=== PATIENT | male | born 1940 | race Caucasian/White ===

== ENCOUNTER → 2016-10-22 | Outpatient (CLI) | payer MEDICARE, OTHER ==
--- NOTE | 2016-10-22 23:01 | CT ---
EXAMINATION TYPE: CT abdomen pelvis wo con DATE OF EXAM: 10/22/2016 2:53 PM COMPARISON: NONE INDICATION: urination changes. Patient denies pain DLP: 618.3 mGycm, Automated exposure control for dose reduction was used. CONTRAST: 0 mL of Omnipaque 300. Study performed without Oral Contrast TECHNIQUE: Axial images were obtained from above the diaphragm to the pubic rami in the axial plane a t 5 mm thick sections. Reconstructed images are reviewed on the computer in the coronal plane. FINDINGS: Limited CT sections are obtained the lung bases. There is some streak opacity in the right posterior lung base. Correlate for streak atelectasis.. Coronary artery calcifications present. CT ABDOMEN: Liver: Normal Spleen: Normal Pancreas: Normal Adrenal glands: The adrenal glands are normal. Gallbladder: Normal Kidneys: No masses are evident. No hydronephrosis is present. There may be a 1.8 cm cyst within the anterior right kidney. This measures 10 Hounsfield units. 6 cyst posterior right mid kidney 0.4 cm. Inferior pole left renal cyst measuring 1.7 cm and 4 Hounsf ield units. An inferior pole right renal cyst measures 2.8 cm and 10 Hounsfield units. Aorta: Vascular calcification is within the aorta. Inferior vena cava: Normal. CT PELVIS: Loops of bowel within the abdomen and pelvis are normal. Diverticular changes are present through the descending colon and sigmoid colon. No acute diverticulitis is evident. Catheter is present with in the pelvis likely is a peritoneal dialysis catheter. No significant fluid is present within the pe lvis. Small amount of free fluid may be present. Appendix: Not identified Urinary bladder: Normal. Genitourinary structures: Prostate is not clearly identified. Correlate with surgical history. Osseous structures: No suspicious lytic or sclerotic lesions. IMPRESSIONS: 1. Renal cyst. 2. Diverticulosis without acute diverticulitis. 3. Streak atelectasis right lung base
== END | disposition home or self-care (01) ==
LOC: RADCTMAIN 14:30
PROVIDERS: ATTEND Internal Medicine
DX: N28.1 Cyst of kidney, acquired (principal); K57.30 Diverticulosis of large intestine without perforation or abscess without bleeding
CPT/HCPCS: 74176

== ENCOUNTER → 2018-01-06 | Day surgery (SDC) | payer MEDICARE, OTHER ==
[2018-01-04 11:40] VITALS: BMI 27.0
[~2018-01-06] MED LIST: INSULIN ASPART 100 UNIT/ML 1 ML 10 ML VIAL SQ ONE; LACTATED RINGERS 1,000 ML IV SCH; LIDOCAINE 1% 20 ML VIAL (10MG/ML) FOR IV START INTRADERMA ONE; ONDANSETRON 4 MG/2 ML VIAL IVP ONE; PROPOFOL 10 MG/ML 20 ML VIAL IV ONE; SODIUM CHLORIDE 0.9% 1,000 ML IV ONE; ePHEDrine SULFATE/0.9% NACL/PF 50 MG/5 ML SYRINGE IV ONE
[2018-01-06 08:17] VITALS: TEMP 98.1
[2018-01-06 08:20] LABS: Glucose,Whole Blood 274 mg/dL (75-99)
[2018-01-06 09:21] LABS: Glucose,Whole Blood 251 mg/dL (75-99)
[2018-01-06 10:33] VITALS: BP 113/73; PULSE 55; RESP 20
--- NOTE | 2018-01-06 11:13 | P.PCN ---
Date of Procedure: 01/06/18 Procedure(s) Performed: Procedure: 1. Esophagogastroduodenoscopy and biopsy. 2. Total colonoscopy. Preoperative diagnosis: Iron deficiency anemia. Postoperative diagnosis: 1. Hiatal hernia with low-grade distal esophagitis. 2. Mild antral gastritis and duodenitis with no ulcers or gastric outlet obstruction. 3. Biopsies obtained from the duodenum, antrum and esophagus. 4. Left-sided diverticulosis of the colon with no evidence of acute diverticulitis or strictures. 5. Cecal polyp snared but no large polyps or cancer. 6. No angiodysplasia or other potential sources of bleeding or any evidence of bleeding at the time of this exam. Preparation: HalfLytely prep. Sedation: Was provided by anesthesia. Brief clinical history: The patient is a 77-year-old male who is scheduled for this evaluation for investigating iron deficiency anemia. The patient has no overt bleeding. He has history of end-stage renal disease on peritoneal dialysis. He had a prior colonoscopy years back but no upper endoscopy that he recalls. He has no abdominal complaints, change in bowel habits or any upper GI complaints. Procedure: With the patient on his left lateral decubitus position and after informed consent and adequate sedation, I passed the Olympus-GIF 160 video upper endoscope through the cricopharyngeus down the esophagus. There was a small sliding hiatal hernia and some distal erythema and superficial short erosion or 2 terminating at the level of the GE junction. The endoscope was then passed into the stomach which was insufflated with air and inspected in detail including the retroflex view in the cardia. There was some mottling and erythema in the antrum but no ulcers or erosions. Pyloric channel, duodenal bulb, post bulbar area and descending duodenum showed minimal erythema but no ulcers, erosions or bleeding. Because of his anemia, I obtained biopsies from the duodenum in addition to biopsies from the antrum and esophagus then the endoscope was withdrawn and I proceeded to do colonoscopy. Perianal area did not show any fissures or fistulas. There were no masses felt on digital rectal examination. The Olympus CFQ 160L video colonoscope was then inserted in the rectum in the usual fashion and advanced to the cecum. There was multiple diverticular orifices noted in the sigmoid and left side with no evidence of acute diverticulitis or strictures. There was a 1.5 cm polyp in the cecum which was snared and retrieved by suction but there were no large polyps or cancer. The mucosa appeared healthy. There was no angiodysplasia or other potential sources of bleeding. I retroflexed the endoscope in the rectum before the endoscope was withdrawn. The patient tolerated the procedure well. Plan: The patient was reassured. Will consider capsule endoscopy to complete his workup. I would keep you updated on his progress.
== END ==
LOC: ORWHC2ENDO 07:41
DX: K44.9 Diaphragmatic hernia without obstruction or gangrene (principal); K29.50 Unspecified chronic gastritis without bleeding; K20.9 Esophagitis, unspecified; D12.0 Benign neoplasm of cecum; K29.80 Duodenitis without bleeding; K57.30 Diverticulosis of large intestine without perforation or abscess without bleeding; D50.9 Iron deficiency anemia, unspecified; I25.118 Atherosclerotic heart disease of native coronary artery with other forms of angina pectoris; E11.22 Type 2 diabetes mellitus with diabetic chronic kidney disease; I12.0 Hypertensive chronic kidney disease with stage 5 chronic kidney disease or end stage renal disease; N18.6 End stage renal disease; Z99.2 Dependence on renal dialysis; E78.5 Hyperlipidemia, unspecified; Z85.46 Personal history of malignant neoplasm of prostate; Z79.82 Long term (current) use of aspirin; Z79.4 Long term (current) use of insulin; Z79.899 Other long term (current) drug therapy; Z91.040 Latex allergy status; Z91.09 Other allergy status, other than to drugs and biological substances
CPT/HCPCS: 88305; 45385; 43239; J2405; J2704

== ENCOUNTER 2018-07-24 09:15 | Inpatient (IN) | payer MEDICARE, OTHER ==
[2018-07-24 20:01] VITALS: BMI 30.8
[2018-07-24] MEDS ORDERED: ALPRAZolam 0.25 MG TAB PO PRN (20:50)
[2018-07-24] MEDS ORDERED: LACTULOSE 20 GM/30 ML CUP PO PRN (20:50)
[2018-07-24] MEDS ORDERED: VANCOMYCIN IV PER PHARMACY 1 EACH MISC MISCELLANE PRN (20:53)
[2018-07-24] MEDS ORDERED: VANCOMYCIN 1,250 MG in SODIUM CHLORIDE 0.9% 250 ML IVPB ONE (22:00)
[2018-07-24] MEDS: CALCIUM ACETATE 667 MG CAP PO SCH (22:01)
[2018-07-24] MEDS: INSULIN ASPART 100 UNIT/ML 1 ML 10 ML VIAL SQ SCH (22:01)
[2018-07-24] MEDS: SERTRALINE 25 MG TAB PO SCH (22:01)
[2018-07-24] MEDS: INSULIN DETEMIR 100 UNIT/ML 10 ML VIAL SQ SCH (22:02)
[2018-07-24] MEDS: DIALYSIS (PERIT 1.5%) 2,000 ML 30 G/2,000 ML BAG INTRAPERIT SCH (23:48)
[2018-07-25] MEDS: DIALYSIS (PERIT 1.5%) 2,000 ML 30 G/2,000 ML BAG INTRAPERIT SCH (05:48)
[2018-07-25 07:13] LABS: Glucose,Whole Blood 80 mg/dL (75-99)
[2018-07-25] MEDS: INSULIN ASPART 100 UNIT/ML 1 ML 10 ML VIAL SQ SCH ×4 (07:29→20:49)
[2018-07-25] MEDS: LISINOPRIL 20 MG TAB PO SCH (08:21)
[2018-07-25] MEDS: FUROSEMIDE 40 MG TAB PO SCH (08:21)
[2018-07-25] MEDS: GENTAMICIN 0.1% CREAM 15 GM TUBE TOPICAL SCH (08:21)
[2018-07-25] MEDS: FAMOTIDINE 20 MG TAB PO SCH (08:21)
[2018-07-25] MEDS: CALCIUM ACETATE 667 MG CAP PO SCH ×4 (08:21→20:47)
[2018-07-25] MEDS: ASPIRIN 81 MG PO SCH (08:21)
[2018-07-25 08:45] LABS: Glucose,Whole Blood 223 mg/dL (75-99)
--- NOTE | 2018-07-25 08:55 | P.PN ---
Subjective Patient is seen in follow-up for end-stage renal disease. He is maintained on peritoneal dialysis. Patient was at [facility] and was transferred here last night. He is currently being treated for peritonitis. His initial fluid culture was positive for staph she's. He was receiving intraperitoneal vancomycin - last dose was on July 23. Repeat cultures have been negative. He is currently on IV vancomycin. He is tolerating the peritoneal dialysis exchanges well. present at bedside. Vital signs are stable. General: The patient appeared well nourished and normally developed. HEENT: Head exam is unremarkable. Neck is without jugular venous distension. LUNGS: Lungs are clear to auscultation and percussion. Breath sounds decreased. HEART: Rate and Rhythm are regular. First and second heart sounds normal. No murmurs, rubs or gallops. ABDOMEN: Abdominal exam reveals normal bowel sounds. Non-tender and non- distended. No evidence of peritonitis. EXTREMITITES: 1+ edema. Objective - Vital Signs Vital signs: Vital Signs Temp 98.3 F 07/25/18 06:33 Pulse 72 07/25/18 06:33 Resp 16 07/25/18 06:33 BP 111/67 07/25/18 06:33 Pulse Ox 96 07/25/18 06:33 Intake & Output 07/24/18 07/25/18 07/25/18 18:59 06:59 18:59 Weight 84.1 kg Other: # Voids 2 # Bowel Movements 1 - Labs Labs: Abnormal Lab Results - Last 24 Hours (Table) 07/24/18 Range/Units 20:53 POC Glucose (mg/dL) 223 H (75-99) mg/dL Assessment and Plan Plan: Assessment: 1. End-stage renal disease maintained on peritoneal dialysis. 2. Peritonitis with initial fluid culture positive for staph species. Patient has received intraperitoneal vancomycin as well as gentamicin at [facility]. Currently on IV vancomycin. Repeat cultures were negative. 3. Hypertension with chronic kidney disease. Controlled. 4. Insulin-dependent diabetes mellitus. 5. 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 6. Lower extremity edema. Plan: I will change the PD exchanges 2 L every 6 hours with 2.5% solution. Maintain IV vancomycin. Repeat dialysate cell count, culture and Gram stain today. Hold lisinopril if systolic blood pressure less than 120.
[2018-07-25 09:20] LABS: Anisocytosis Slight; Basophils % (A) 0 %; Eosinophils # (A) 0.2 k/uL (0-0.7); Eosinophils % (A) 3 %; HCT 33.8 % (39.0-53.0); HGB 10.6 gm/dL (13.0-17.5); Hypochromasia Slight; Lymphocytes # (A) 1.1 k/uL (1.0-4.8); Lymphocytes % (A) 12 %; MCH 31.6 pg (25.0-35.0); MCHC 31.4 g/dL (31.0-37.0); MCV 100.6 fL (80.0-100.0); Macrocytosis Moderate; Mean Platelet Volume 6.9; Monocytes # (A) 0.5 k/uL (0-1.0); Monocytes % (A) 5 %; Neutrophils # (A) 6.9 k/uL (1.3-7.7); Neutrophils % (A) 77 %; Platelet Count 338 k/uL (150-450); RBC 3.36 m/uL (4.30-5.90); WBC 8.9 k/uL (3.8-10.6)
[2018-07-25 09:49] LABS: Albumin 3.1 g/dL (3.5-5.0); Calcium 9.2 mg/dL (8.4-10.2); Potassium 3.8 mmol/L (3.5-5.1); Total Bilirubin 0.5 mg/dL (0.2-1.3); Total Protein 5.9 g/dL (6.3-8.2)
[2018-07-25] MEDS: DIALYSIS (PERIT 2.5%) 2,000 ML 50 G/2,000 ML BAG INTRAPERIT SCH ×3 (11:46→23:31)
[2018-07-25 12:26] LABS: Glucose,Whole Blood 171 mg/dL (75-99)
[2018-07-25] MEDS ORDERED: VANCOMYCIN 1,250 MG in SODIUM CHLORIDE 0.9% 250 ML IVPB ONE (16:00)
[2018-07-25 16:42] LABS: Glucose,Whole Blood 228 mg/dL (75-99)
[2018-07-25 18:16] LABS: Hemoglobin A1C 8.8 % (4.0-6.0)
[2018-07-25 19:06] LABS: Appearance,BF Clear; Color,BF Colorless; Nucleated Cells, Body Fluid 1 /uL; RBC, Body Fluid 4 /uL
[2018-07-25] MEDS: SERTRALINE 25 MG TAB PO SCH (20:47)
[2018-07-25 20:50] LABS: Glucose,Whole Blood 184 mg/dL (75-99)
[2018-07-25] MEDS: INSULIN DETEMIR 100 UNIT/ML 10 ML VIAL SQ SCH (21:03)
--- NOTE | 2018-07-26 01:40 | P.HPIM ---
History of Present Illness H&P Date: 07/25/18 Chief Complaint: Abdominal wall PD site infection History of present complaint: This is a very pleasant [address] Sarthak Locke. Chronic stable medical conditions include diabetes, end-stage kidney disease on peritoneal dialysis, hypertension, hyperlipidemia, osteoarthritis, anxiety. Patient recently took a fall and was brought to the ER. It was then doubly patient lives a cervical spine fracture. Patient was transferred down to the [facility]. Patient was found not to have a fracture there. Patient's found to have infection of the peritoneal catheter dialysis site. Also peritonitis with Staphylococcus. And he was transferred here. Getting antibiotics for the same. The patient is able to walk. Able to tolerate her diet. Having bowel movements. Patient of recent is had couple of episodes he gets dizzy then he passes out. No chest pain or palpitation. No fever no chills. Review of systems: GEN.: None EYES: None HEENT: None NECK: None RESPIRATORY: None CARDIOVASCULAR: None GASTROINTESTINAL: None GENITOURINARY: None MUSCULOSKELETAL: Some pain which I LYMPHATICS: None HEMATOLOGICAL: None PSYCHIATRY: None NEUROLOGICAL: None Dermatological bruising on the right forehead Past medical history: Diabetes, end-stage kidney disease on peritoneal Dialysis, hypertension, hyperlipidemia, osteoarthritis, prostate cancer, anxiety Social history: Smokes 3 and a pack a day for about 25 years stopped in 1985. . 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 EYES: Pupils equal. Conjunctiva normal. HEENT: External appearance of nose and ears normal, oral cavity grossly normal, some bruising on the right side of the forehead. NECK: JVD not raised; masses not palpable. HEART: First and second heart sounds are normal; no edema. LUNGS: Respiratory rate normal; decreased breaths a. ABDOMEN: Soft, nontender, liver spleen not palpable, no masses palpable, PD catheter present Some redness of the skin around that. LYMPHATICS: No lymph nodes palpable in the axilla and neck. PSYCH: Alert and oriented x3; mood and affect normal. NEUROLOGICAL: Cranial nerves grossly intact; no facial asymmetry, power and sensation grossly intact. Assessment: -Acute cellulitis around the PD catheter site. -Secondary peritonitis with cultures that were positive for staph. Patient did receive intraperitoneal vancomycin and gentamicin at [facility] -Diabetes mellitus type 2 -End-stage kidney disease on peritoneal dialysis -Essential hypertension -Hyperlipidemia -Primary osteoarthritis Plan: Infectious disease and nephrology was consulted. Home medications are resumed. Peripheral dialysis to continue. Antibiotics per ID. Care was discussed with the patient. Patient's appetite is rather good. floor worker well service is involved. Care was discussed the patient. Past Medical History Past Medical History: Cancer, Chest Pain / Angina, Diabetes Mellitus, Dialysis, Hearing Disorder / Deafness, Hyperlipidemia, Hypertension, Osteoarthritis (OA), Prostate Disorder, Renal Disease Additional Past Medical History / Comment(s): PROSTATE CANCER , heart murmer, anemia, "boarderline gout", no current rx for cholesterol, peritoneal dialysis- daily, problems with balance-cause unknown History of Any Multi-Drug Resistant Organisms: None Reported Past Surgical History: Heart Catheterization, Hernia Repair, Prostate Surgery, Tonsillectomy Additional Past Surgical History / Comment(s): LEFT INGUINAL HERNIA REPAIR X2, peritoneal dialysis catheter Past Anesthesia/Blood Transfusion Reactions: No Reported Reaction Past Psychological History: Anxiety Smoking Status: Former smoker Past Alcohol Use History: None Reported Additional Past Alcohol Use History / Comment(s): STARTED SMOKING AT AGE 21, QUIT 1986 SMOKED, 3 1/2 PPD Past Drug Use History: None Reported - Past Family History Father Family Medical History: Cancer Medications and Allergies Home Medications Medication Instructions Recorded Confirmed Type Aspirin 81 mg PO DAILY 06/02/16 07/24/18 History Calcium Acetate [Phoslo] 667 mg PO ACHS 06/02/16 07/24/18 History ALPRAZolam [Xanax] 0.25 mg PO BID PRN 01/04/18 07/24/18 History Calcitriol 0.5 mcg PO MO 01/04/18 07/24/18 History Ergocalciferol [Vitamin D2] 50,000 unit PO Q14D 01/04/18 07/24/18 History Furosemide [Lasix] 80 mg PO DAILY 01/04/18 07/24/18 History Insulin Glargine [Lantus] 35 unit SQ HS 01/04/18 07/24/18 History Lisinopril [Zestril] 20 mg PO DAILY 01/04/18 07/24/18 History Sertraline [Zoloft] 25 mg PO HS 01/04/18 07/24/18 History Calcium Carb-Mag Carb-Folic 1 tab PO TID 07/21/18 07/24/18 History [Magnebind 400 Rx] Famotidine 20 mg PO DAILY 07/21/18 07/24/18 History Lactulose 20 gm PO DAILY PRN 07/21/18 07/24/18 History Francheska Charli 1 tab PO DAILY 07/21/18 07/24/18 History Sevelamer [Renvela] 800 mg PO AC-TID 07/21/18 07/24/18 History Allergies Allergy/AdvReac Type Severity Reaction Status Date / Time adhesive tape Allergy Rash/Hives/ Verified 07/24/18 20:31 blisters/it xochitl latex Allergy Rash/Hives/ Verified 07/24/18 20:31 blisters sulfamethoxazole AdvReac Nausea & Verified 07/24/18 20:31 [From Bactrim] Vomiting trimethoprim [From Bactrim] AdvReac Nausea & Verified 07/24/18 20:31 Vomiting Physical Exam Vitals: Vital Signs Temp Pulse Pulse Resp BP BP Pulse Ox 07/25/18 15:21 16 07/25/18 14:00 98.2 F 54 L 16 183/98 93 L 07/25/18 11:27 68 16 98/58 98 07/25/18 08:00 72 16 07/25/18 06:33 98.3 F 72 16 111/67 96 07/24/18 23:48 98.0 F 70 16 112/70 98 07/24/18 23:25 98.3 F 73 16 111/68 97 07/24/18 19:53 96.2 F L 82 16 116/63 98 Intake and Output 07/25/18 07/25/18 07/25/18 06:59 14:59 22:59 Other: # Voids 2 3 # Bowel Movements 1 Results CBC & Chem 7: 07/25/18 08:24 07/25/18 08:24 Labs: Abnormal Lab Results - Last 24 Hours (Table) 07/24/18 07/25/18 07/25/18 Range/Units 20:53 08:24 08:24 RBC 3.36 L (4.30-5.90) m/uL Hgb 10.6 L (13.0-17.5) gm/dL Hct 33.8 L (39.0-53.0) % MCV 100.6 H (80.0-100.0) fL RDW 18.0 H (11.5-15.5) % Sodium 135 L (137-145) mmol/L Chloride 95 L (98-107) mmol/L BUN 74 H (9-20) mg/dL Creatinine 8.41 H* (0.66-1.25) mg/dL Glucose 136 H (74-99) mg/dL POC Glucose (mg/dL) 223 H (75-99) mg/dL Total Protein 5.9 L (6.3-8.2) g/dL Albumin 3.1 L (3.5-5.0) g/dL 07/25/18 07/25/18 Range/Units 12:24 16:40 RBC (4.30-5.90) m/uL Hgb (13.0-17.5) gm/dL Hct (39.0-53.0) % MCV (80.0-100.0) fL RDW (11.5-15.5) % Sodium (137-145) mmol/L Chloride (98-107) mmol/L BUN (9-20) mg/dL Creatinine (0.66-1.25) mg/dL Glucose (74-99) mg/dL POC Glucose (mg/dL) 171 H 228 H (75-99) mg/dL Total Protein (6.3-8.2) g/dL Albumin (3.5-5.0) g/dL Thrombosis Risk Factor Assmnt - Choose All That Apply Each Factor Represents 1 point: Obesity (BMI >25) Other Risk Factors: Yes Each Risk Factor Represents 3 Points: Age 75 years or older Other congenital or acquired thrombophilia - If yes, enter type in comment: No Thrombosis Risk Factor Assessment Total Risk Factor Score: 4 Thrombosis Risk Factor Assessment Level: Moderate Risk
[2018-07-26] MEDS: DIALYSIS (PERIT 2.5%) 2,000 ML 50 G/2,000 ML BAG INTRAPERIT SCH ×4 (05:49→20:16)
[2018-07-26 07:15] LABS: Glucose,Whole Blood 153 mg/dL (75-99)
[2018-07-26] MEDS: FUROSEMIDE 40 MG TAB PO SCH (07:35)
[2018-07-26] MEDS: ASPIRIN 81 MG PO SCH (07:35)
[2018-07-26] MEDS: FAMOTIDINE 20 MG TAB PO SCH (07:35)
[2018-07-26] MEDS: INSULIN ASPART 100 UNIT/ML 1 ML 10 ML VIAL SQ SCH ×4 (07:36→21:42)
[2018-07-26] MEDS: CALCIUM ACETATE 667 MG CAP PO SCH ×4 (07:36→20:36)
[2018-07-26] MEDS: GENTAMICIN 0.1% CREAM 15 GM TUBE TOPICAL SCH (07:36)
[2018-07-26] MEDS: LISINOPRIL 20 MG TAB PO SCH (07:36)
[2018-07-26 08:44] LABS: Anisocytosis Slight; Basophils # (A) 0.1 k/uL (0-0.2); Basophils % (A) 1 %; Eosinophils # (A) 0.3 k/uL (0-0.7); Eosinophils % (A) 3 %; Hypochromasia Slight; Lymphocytes # (A) 1.2 k/uL (1.0-4.8); Lymphocytes % (A) 14 %; MCH 32.5 pg (25.0-35.0); MCHC 32.4 g/dL (31.0-37.0); MCV 100.2 fL (80.0-100.0); Macrocytosis Slight; Mean Platelet Volume 6.9; Monocytes # (A) 0.4 k/uL (0-1.0); Monocytes % (A) 5 %; Neutrophils # (A) 6.6 k/uL (1.3-7.7); Neutrophils % (A) 75 %; Platelet Count 381 k/uL (150-450); RBC 3.39 m/uL (4.30-5.90); RDW 17.9 % (11.5-15.5); WBC 8.8 k/uL (3.8-10.6)
[2018-07-26 09:03] LABS: Calcium 9.5 mg/dL (8.4-10.2); Potassium 3.7 mmol/L (3.5-5.1)
--- NOTE | 2018-07-26 10:24 | P.PN ---
Subjective Patient is seen in follow-up for end-stage renal disease. He is maintained on peritoneal dialysis. Patient was at [facility] and was transferred here as he lives in the area. He is currently being treated for peritonitis. His initial fluid culture was positive for staph aureus. He was receiving intraperitoneal vancomycin - last dose was on July 23. Repeat cultures have been negative. He is currently on IV vancomycin. He is tolerating the peritoneal dialysis exchanges well. Complains of edema of the lower extremities. Vital signs are stable. General: The patient appeared well nourished and normally developed. HEENT: Head exam is unremarkable. Neck is without jugular venous distension. LUNGS: Lungs are clear to auscultation and percussion. Breath sounds decreased. HEART: Rate and Rhythm are regular. First and second heart sounds normal. No murmurs, rubs or gallops. ABDOMEN: Abdominal exam reveals normal bowel sounds. Non-tender and non- distended. No evidence of peritonitis. EXTREMITITES: 1+ edema. Objective - Vital Signs Vital signs: Vital Signs Temp 98.0 F 07/26/18 07:15 Pulse 77 07/26/18 07:15 Resp 18 07/26/18 07:15 BP 112/75 07/26/18 07:15 Pulse Ox 98 07/26/18 07:15 Intake & Output 07/25/18 07/26/18 07/26/18 18:59 06:59 18:59 Other: Voiding Method Toilet # Voids 1 1 # Bowel Movements 1 - Labs CBC & Chem 7: 07/26/18 08:14 07/26/18 08:14 Labs: Abnormal Lab Results - Last 24 Hours (Table) 07/25/18 07/25/18 07/25/18 Range/Units 08:24 12:24 16:40 RBC (4.30-5.90) m/uL Hgb (13.0-17.5) gm/dL Hct (39.0-53.0) % MCV (80.0-100.0) fL RDW (11.5-15.5) % BUN (9-20) mg/dL Creatinine (0.66-1.25) mg/dL Glucose (74-99) mg/dL POC Glucose (mg/dL) 171 H 228 H (75-99) mg/dL Hemoglobin A1c 8.8 H (4.0-6.0) % 07/25/18 07/26/18 07/26/18 Range/Units 20:43 07:13 08:14 RBC (4.30-5.90) m/uL Hgb (13.0-17.5) gm/dL Hct (39.0-53.0) % MCV (80.0-100.0) fL RDW (11.5-15.5) % BUN 76 H (9-20) mg/dL Creatinine 8.53 H* (0.66-1.25) mg/dL Glucose 155 H (74-99) mg/dL POC Glucose (mg/dL) 184 H 153 H (75-99) mg/dL Hemoglobin A1c (4.0-6.0) % 07/26/18 Range/Units 08:14 RBC 3.39 L (4.30-5.90) m/uL Hgb 11.0 L (13.0-17.5) gm/dL Hct 34.0 L (39.0-53.0) % MCV 100.2 H (80.0-100.0) fL RDW 17.9 H (11.5-15.5) % BUN (9-20) mg/dL Creatinine (0.66-1.25) mg/dL Glucose (74-99) mg/dL POC Glucose (mg/dL) (75-99) mg/dL Hemoglobin A1c (4.0-6.0) % Microbiology - Last 24 Hours (Table) 07/25/18 18:33 Gram Stain - Preliminary Peritoneal Fluid Body Fluid Culture - Preliminary Assessment and Plan Plan: Assessment: 1. End-stage renal disease maintained on peritoneal dialysis. 2. Peritonitis with initial fluid culture positive for staph species. Patient has received intraperitoneal vancomycin as well as gentamicin at [facility]. Currently on IV vancomycin. Repeat cultures have been negative. Cell count is 1. 3. Hypertension with chronic kidney disease. Controlled. 4. Insulin-dependent diabetes mellitus. 5. 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 6. Lower extremity edema. Plan: I will change the PD exchanges 2 L every 4 hours with 2.5% solution. Maintain IV vancomycin. Target level 15. Discontinue lisinopril. Maintain Lasix 80 mg daily. Add midodrine.
[2018-07-26] MEDS: MIDODRINE 5 MG TAB PO SCH ×2 (10:53→17:45)
[2018-07-26 12:17] LABS: Glucose,Whole Blood 231 mg/dL (75-99)
[2018-07-26 17:03] LABS: Glucose,Whole Blood 167 mg/dL (75-99)
[2018-07-26] MEDS: SERTRALINE 25 MG TAB PO SCH (20:36)
[2018-07-26 20:50] LABS: Glucose,Whole Blood 198 mg/dL (75-99)
[2018-07-26] MEDS: INSULIN DETEMIR 100 UNIT/ML 10 ML VIAL SQ SCH (21:42)
[2018-07-27] MEDS: DIALYSIS (PERIT 2.5%) 2,000 ML 50 G/2,000 ML BAG INTRAPERIT SCH ×7 (00:27→23:57)
--- NOTE | 2018-07-27 06:19 | CONS ---
CONSULTATION DATE OF SERVICE: 07/26/2018 REASON FOR CONSULTATION: Right leg wound. HISTORY OF PRESENT ILLNESS: The patient is a 78-year-old male with a past medical history significant for end-stage renal disease on peritoneal dialysis. The patient was recently seen at [facility] ER after apparently the patient did have a fall and a low blood sugar. The patient subsequently has been transferred to the [facility] concern for possible C1 cervical fracture. He has been evaluated at that facility and was ruled out for the same. He was diagnosed with peritoneal dialysis catheter peritonitis, apparently culture positive for Staph epi. Subsequently, the patient has been transferred to this facility for continued treatment which the patient is currently getting vancomycin IV. The patient did mention that his abdominal pain has improved and the patient did have peritoneal fluid sent for analysis, which was clear, colorless and only one cell. The patient also has a wound on his right leg. He did mention that he did have significant swelling in his leg that has led to formation of a blister that has opened up leading to this ulceration which the patient has for a couple of weeks now. The patient said he has been taking care of this by applying some dressing. The patient did have mild pain to the area more of a dull aching, 1 to 2 out of 10 and no radiation. There is some surrounding swelling but no redness or any foul- smelling drainage. The patient denies having any fever or chills at this point. REVIEW OF SYSTEMS: Positive points have been mentioned in HPI, the rest of the 14 systems has been negative. PAST MEDICAL HISTORY: End-stage renal disease on peritoneal dialysis, hypertension, hyperlipidemia, osteoarthritis, prostate cancer, anxiety. PAST SURGICAL HISTORY: Peritoneal dialysis catheter placement. SOCIAL HISTORY: The patient did have significant history of smoking, quit back in 1985. Denies any drinking or drug use. FAMILY HISTORY: No pertinent findings noticed. ALLERGIES: Allergies to SULFAMETHOXAZOLE and LATEX. MEDICATIONS: The patient is currently on Zoloft, vancomycin pharmacy to dose, midodrine, lactulose, Levemir, NovoLog, Lasix, Pepcid, PhosLo, aspirin, and Xanax. PHYSICAL EXAMINATION: On examination, blood pressure is 104/63 with a pulse of 84, temperature 97. He is 94% on room air. General description is elderly male up in the bed in no distress. No tachypnea or accessory muscle of respiration use. HEENT examination shows pallor no scleral icterus. Oral mucous membrane is dry. No pharyngeal erythema or thrush. NECK: Trachea central. No thyromegaly. LUNGS: Unlabored breathing, clear to auscultation anteriorly. No wheeze or crackle. HEART: S1, S2. Regular rate and rhythm. ABDOMEN: Soft, no tenderness. No guarding or rigidity. EXTREMITIES: With 1 to 2+ edema of feet. Right leg anterior leg did have a wound with slough tissue at the base. Some surrounding swelling but no redness or any foul- smelling drainage. NEUROLOGICAL: Patient is awake, alert, oriented x3. Mood and affect normal. LABS: Hemoglobin is 11, white count 8.8. BUN of 76, creatinine 8.53. Peritoneal fluid with clear, colorless, only 1 WBC with cultures currently pending. DIAGNOSTIC IMPRESSION AND PLAN: 1. Patient with right leg wound more likely swelling with blister formation. Currently the wound does have slough tissue at the base, but no evidence of any cellulitis. Will recommend local wound care. 2. The patient with peritoneal dialysis catheter-assisted peritonitis with culture positive for Staphylococcus epidermidis. PLAN: 1. Local wound care to the right leg wound with Medihoney followed by moist dressing then an Lul wrap on the right leg to keep the swelling down. Dressing should be changed daily. 2. Patient to continue vancomycin pharmacy to dose for his underlying peritonitis. However, we will try to obtain the culture report from the [facility]. 3. We will follow up on clinical condition and further adjust medication if needed. Thank you for this consultation. Will follow this patient along with you. MMODL / IJN: [id number] /
[2018-07-27] MEDS ORDERED: INSULIN DETEMIR 100 UNIT/ML 10 ML VIAL SQ SCH (06:20)
[2018-07-27 07:35] LABS: Glucose,Whole Blood 160 mg/dL (75-99)
[2018-07-27] MEDS: FUROSEMIDE 40 MG TAB PO SCH (08:26)
[2018-07-27] MEDS: CALCIUM ACETATE 667 MG CAP PO SCH ×4 (08:26→20:50)
[2018-07-27] MEDS: FAMOTIDINE 20 MG TAB PO SCH (08:26)
[2018-07-27] MEDS: MIDODRINE 5 MG TAB PO SCH ×2 (08:26→16:28)
[2018-07-27] MEDS: ASPIRIN 81 MG PO SCH (08:26)
[2018-07-27] MEDS: INSULIN ASPART 100 UNIT/ML 1 ML 10 ML VIAL SQ SCH ×4 (08:27→22:01)
[2018-07-27] MEDS: GENTAMICIN 0.1% CREAM 15 GM TUBE TOPICAL SCH (08:27)
--- NOTE | 2018-07-27 10:01 | P.PN ---
Subjective Patient is seen in follow-up for end-stage renal disease. He is maintained on peritoneal dialysis. Patient was at [facility] and was transferred here as he lives in the area. He is currently being treated for peritonitis. His initial fluid culture was positive for staph aureus. He was receiving intraperitoneal vancomycin - last dose was on July 23. Repeat cultures have been negative. He is currently on IV vancomycin. He is tolerating the peritoneal dialysis exchanges well. Lower extremity edema improving. Vital signs are stable. General: The patient appeared well nourished and normally developed. HEENT: Head exam is unremarkable. Neck is without jugular venous distension. LUNGS: Lungs are clear to auscultation and percussion. Breath sounds decreased. HEART: Rate and Rhythm are regular. First and second heart sounds normal. No murmurs, rubs or gallops. ABDOMEN: Abdominal exam reveals normal bowel sounds. Non-tender and non- distended. No evidence of peritonitis. EXTREMITITES: 1+ edema. Objective - Vital Signs Vital signs: Vital Signs Temp 97.9 F 07/27/18 05:40 Pulse 68 07/27/18 05:40 Resp 20 07/27/18 05:40 BP 109/68 07/27/18 05:40 Pulse Ox 98 07/27/18 05:40 Intake & Output 07/26/18 07/27/18 07/27/18 18:59 06:59 18:59 Intake Total 300 Balance 300 Weight 81.5 kg Intake: Oral 300 Other: Voiding Method Toilet # Voids 1 2 - Labs CBC & Chem 7: 07/26/18 08:14 07/26/18 08:14 Labs: Abnormal Lab Results - Last 24 Hours (Table) 07/26/18 07/26/18 07/26/18 Range/Units 12:14 17:01 20:48 POC Glucose (mg/dL) 231 H 167 H 198 H (75-99) mg/dL 07/27/18 Range/Units 07:11 POC Glucose (mg/dL) 160 H (75-99) mg/dL Microbiology - Last 24 Hours (Table) 07/25/18 18:33 Gram Stain - Preliminary Peritoneal Fluid Body Fluid Culture - Preliminary Assessment and Plan Plan: Assessment: 1. End-stage renal disease maintained on peritoneal dialysis. 2. Peritonitis with initial fluid culture positive for staph species. Patient has received intraperitoneal vancomycin as well as gentamicin at [facility]. Currently on IV vancomycin. Repeat cultures have been negative. Cell count is 1. 3. Hypertension with chronic kidney disease. Controlled. 4. Insulin-dependent diabetes mellitus. 5. 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 6. Lower extremity edema. Improving. 7. Lower extremity wound. Infectious disease following. Plan: Maintain current PD exchanges - 2 L every 4 hours with 2.5% solution. Maintain IV vancomycin. Target level 15. Discontinued lisinopril due to low blood pressure. Maintain Lasix 80 mg daily. Continue midodrine.
[2018-07-27 12:50] LABS: Glucose,Whole Blood 246 mg/dL (75-99)
--- NOTE | 2018-07-27 17:07 | PN ---
PROGRESS NOTE DATE OF SERVICE: 07/27/2018. REASON FOR FOLLOWUP: 1. Right leg wound. 2. Peritoneal dialysis catheter-associated peritonitis. INTERVAL HISTORY: The patient is currently afebrile. He is breathing comfortably. Patient's abdominal pain has improved. He did mention that the soreness around the dialysis catheter much improved. Denies any abdominal pain or any pain to the right leg area. PHYSICAL EXAMINATION: Blood pressure is 119/56, pulse of 73, temperature 97.3. He is 99% on room air. General description is an elderly male up in the bed in no distress. RESPIRATORY SYSTEM: Unlabored breathing with decreased breath sounds at the base. No wheeze. HEART: S1, S2. Regular rate and rhythm. ABDOMEN: LABS: No new labs have been obtained today. Peritoneal culture has been negative. DIAGNOSTIC IMPRESSION AND PLAN: 1. Patient with a right leg wound with no evidence of any cellulitis. Local wound care with Medihoney covered by Lul wrap to keep the swelling down, to be changed daily. Follow up in the wound care center next week. Continue with local care. 2. Patient with a peritoneal dialysis catheter-associated peritonitis, still waiting for the final on the culture done at [facility] with Staphylococcus epidermidis, for which he will continue the vancomycin, Pharmacy to dose, through the peritoneal dialysis catheter for another 3 . MMODL / IJN: [id number] /
[2018-07-27 17:38] LABS: Glucose,Whole Blood 123 mg/dL (75-99)
--- NOTE | 2018-07-27 18:28 | P.PN ---
Subjective Progress Note Date: 07/26/18 Interval history: This is a 78-year-old gentleman admitted with peritonitis in a patient with end-stage renal disease on peritoneal dialysis and multiple other medical issues. Peritoneal dialysis exchanges increased from every 6 hours to every 4 hours as per nephrology. Peritoneal drainage clear, colorless , with 1 nucleated cell. Peritoneal cultures pending. Peritoneal culture results from [facility] have been ordered and pending. Maintained on IV vancomycin as per infectious disease with pharmacy dosing. Good diet intake with no nausea or vomiting. Review Of Systems: Constitutional: Denied any fatigue denied any fever. Cardio vascular: denied any chest pain, palpitations Gastrointestinal denied any nausea vomiting, no abdominal pain Pulmonary: Denied any shortness of breath cough Neurologic denied any new focal deficits. Active Medications Alprazolam (Xanax) 0.25 mg PO BID PRN PRN Reason: Anxiety Last Admin: 07/25/18 20:47 Dose: 0.25 mg Aspirin (Aspirin) 81 mg PO DAILY [facility] Last Admin: 07/26/18 07:35 Dose: 81 mg Calcium Acetate (Phoslo) 667 mg PO ACHS [facility] Last Admin: 07/26/18 20:36 Dose: 667 mg Ergocalciferol (Vitamin D2) 50,000 unit PO Q14D [facility] Famotidine (Pepcid) 20 mg PO DAILY [facility] Last Admin: 07/26/18 07:35 Dose: 20 mg Furosemide (Lasix) 80 mg PO DAILY [facility] Last Admin: 07/26/18 07:35 Dose: 80 mg Gentamicin Sulfate (Gentamicin 0.1% Cream) 1 applic TOPICAL DAILY [facility] Last Admin: 07/26/18 07:36 Dose: 1 applic Peritoneal Dialysis Solution (Delflex With 2.5% Dextrose (2,000 Ml)) 50 g in 2, 000 mls @ 0 mls/hr INTRAPERIT Q4HR [facility]; Protocol Last Admin: 07/26/18 20:16 Dose: 2,000 mls/hr Insulin Aspart (Novolog) 0 unit SQ ACHS [facility]; Protocol Last Admin: 07/26/18 17:45 Dose: 2 unit Insulin Detemir (Levemir) 35 unit SQ HS [facility] Last Admin: 07/25/18 21:03 Dose: 35 unit Lactulose (Cephulac) 20 gm PO DAILY PRN PRN Reason: Constipation Midodrine (Proamatine) 5 mg PO AC-BID [facility] Last Admin: 07/26/18 17:45 Dose: 5 mg Miscellaneous Information (Pharmacy To Dose Iv Vancomycin) 1 each MISCELLANE DIRECTED PRN PRN Reason: Per Protocol Sertraline HCl (Zoloft) 25 mg PO HS [facility] Last Admin: 07/26/18 20:36 Dose: 25 mg Objective - Vital Signs Vital signs: Vital Signs Temp 98.8 F 07/26/18 14:40 Pulse 78 07/26/18 14:40 Resp 16 07/26/18 14:40 BP 95/55 07/26/18 14:40 Pulse Ox 96 07/26/18 14:40 Intake & Output 07/26/18 07/26/18 07/27/18 06:59 18:59 06:59 Other: Voiding Method Toilet # Voids 1 1 - Exam PHYSICAL EXAM: VITAL SIGNS: As above GENERAL: Sitting up at side of bed, no acute distress HEENT: Conjunctivae normal. Pupils equal. NECK: No JVD. No thyroid enlargement. No LNs CARDIOVASCULAR: S1, S2 muffled. No murmur. RESPIRATION: Nonlabored, Breath sounds diminished in the bases. No rhonchi or crackles. No bronchial breathing. ABDOMEN: Soft, nontender, nondistended . No guarding. no masses palpable. Bowel sounds heard. PD cath present, no redness LEGS: Positive edema. no clubbing. Right anterior lower leg with dressing clean dry and intact PSYCHIATRY: Alert and oriented -3, mood and affect normal. NERVOUS SYSTEM: Cranial N 2-12 grossly normal. Moves all 4 limbs. No focal deficits. Skin: no rash Lymphatic system. No LN neck, axilla - Labs CBC & Chem 7: 07/26/18 08:14 07/26/18 08:14 Labs: Abnormal Lab Results - Last 24 Hours (Table) 07/26/18 07/26/18 07/26/18 Range/Units 07:13 08:14 08:14 RBC 3.39 L (4.30-5.90) m/uL Hgb 11.0 L (13.0-17.5) gm/dL Hct 34.0 L (39.0-53.0) % MCV 100.2 H (80.0-100.0) fL RDW 17.9 H (11.5-15.5) % BUN 76 H (9-20) mg/dL Creatinine 8.53 H* (0.66-1.25) mg/dL Glucose 155 H (74-99) mg/dL POC Glucose (mg/dL) 153 H (75-99) mg/dL 07/26/18 07/26/18 07/26/18 Range/Units 12:14 17:01 20:48 RBC (4.30-5.90) m/uL Hgb (13.0-17.5) gm/dL Hct (39.0-53.0) % MCV (80.0-100.0) fL RDW (11.5-15.5) % BUN (9-20) mg/dL Creatinine (0.66-1.25) mg/dL Glucose (74-99) mg/dL POC Glucose (mg/dL) 231 H 167 H 198 H (75-99) mg/dL Microbiology - Last 24 Hours (Table) 07/25/18 18:33 Gram Stain - Preliminary Peritoneal Fluid Body Fluid Culture - Preliminary Assessment and Plan Assessment: -Peritonitis,, catheter associated with cultures that were apparently positive for staph.epi at [facility]. Patient did receive intraperitoneal vancomycin and gentamicin at [facility]. -Right leg wound, with blister, without cellulitis -Diabetes mellitus type 2 -End-stage kidney disease on peritoneal dialysis -Essential hypertension -Hyperlipidemia -Primary osteoarthritis Plan continue on current medication regime ,Lasix,monitoring and symptomatic treatment. [facility] culture results ordered/pending. Peritoneal cultures pending. IV antibiotics/Wound Care as per infectious disease. Peritoneal dialysis frequency increased as per nephrology, as mentioned above. Discharge planning in progress for tomorrow. The impression and plan of care has been dictated as directed. : I performed a history and examination of this patient, discussed the same with the dictator. I agree with the dictator's note ,documented as a scribe. Any additional findings or plans will be noted.
--- NOTE | 2018-07-27 18:39 | P.PN ---
Subjective Progress Note Date: 07/27/18 Interval history: This is a 78-year-old gentleman admitted with peritonitis in a patient with end-stage renal disease on peritoneal dialysis and multiple other medical issues. Peritoneal dialysis exchanges increased from every 6 hours to every 4 hours as per nephrology. Peritoneal drainage clear, colorless , with 1 nucleated cell. Peritoneal cultures pending. Peritoneal culture results from [facility] have been ordered and pending. Maintained on IV vancomycin as per infectious disease with pharmacy dosing. Good diet intake with no nausea or vomiting. 07/27/2018 no overnight events. Afebrile. Awaiting final culture from [facility]. Maintained on vancomycin IV via peritoneal dialysis catheter. Review Of Systems: Constitutional: Denied any fatigue denied any fever. Cardio vascular: denied any chest pain, palpitations Gastrointestinal denied any nausea vomiting, no abdominal pain Pulmonary: Denied any shortness of breath cough Neurologic denied any new focal deficits. Active Medications Alprazolam (Xanax) 0.25 mg PO BID PRN PRN Reason: Anxiety Last Admin: 07/25/18 20:47 Dose: 0.25 mg Aspirin (Aspirin) 81 mg PO DAILY [facility] Last Admin: 07/26/18 07:35 Dose: 81 mg Calcium Acetate (Phoslo) 667 mg PO ACHS [facility] Last Admin: 07/26/18 20:36 Dose: 667 mg Ergocalciferol (Vitamin D2) 50,000 unit PO Q14D [facility] Famotidine (Pepcid) 20 mg PO DAILY [facility] Last Admin: 07/26/18 07:35 Dose: 20 mg Furosemide (Lasix) 80 mg PO DAILY [facility] Last Admin: 07/26/18 07:35 Dose: 80 mg Gentamicin Sulfate (Gentamicin 0.1% Cream) 1 applic TOPICAL DAILY [facility] Last Admin: 07/26/18 07:36 Dose: 1 applic Peritoneal Dialysis Solution (Delflex With 2.5% Dextrose (2,000 Ml)) 50 g in 2, 000 mls @ 0 mls/hr INTRAPERIT Q4HR [facility]; Protocol Last Admin: 07/26/18 20:16 Dose: 2,000 mls/hr Insulin Aspart (Novolog) 0 unit SQ ACHS [facility]; Protocol Last Admin: 07/26/18 17:45 Dose: 2 unit Insulin Detemir (Levemir) 35 unit SQ HS [facility] Last Admin: 07/25/18 21:03 Dose: 35 unit Lactulose (Cephulac) 20 gm PO DAILY PRN PRN Reason: Constipation Midodrine (Proamatine) 5 mg PO AC-BID [facility] Last Admin: 07/26/18 17:45 Dose: 5 mg Miscellaneous Information (Pharmacy To Dose Iv Vancomycin) 1 each MISCELLANE DIRECTED PRN PRN Reason: Per Protocol Sertraline HCl (Zoloft) 25 mg PO HS [facility] Last Admin: 07/26/18 20:36 Dose: 25 mg Objective - Vital Signs Vital signs: Vital Signs Temp 97.9 F 07/27/18 15:59 Pulse 73 07/27/18 15:59 Resp 16 07/27/18 15:59 BP 119/56 07/27/18 15:59 Pulse Ox 99 07/27/18 15:59 Intake & Output 07/26/18 07/27/18 07/27/18 18:59 06:59 18:59 Intake Total 300 240 Balance 300 240 Weight 81.5 kg Intake: Oral 300 240 Other: Voiding Method Toilet # Voids 1 2 2 - Exam PHYSICAL EXAM: VITAL SIGNS: As above GENERAL: Sitting up at side of bed, no acute distress HEENT: Conjunctivae normal. Pupils equal. Oral mucosa moist. NECK: No JVD. No thyroid enlargement. No LNs CARDIOVASCULAR: S1, S2 muffled. No murmur. RESPIRATION: Nonlabored, bilateral Breath sounds diminished in the bases. No rhonchi, crackles or wheezing ABDOMEN: Soft, nontender, nondistended . No guarding. no masses palpable. Bowel sounds heard. PD cath present, no redness LEGS: improving edema. no clubbing. Right anterior lower leg with dressing clean dry and intact PSYCHIATRY: Alert and oriented -3, mood and affect normal. NERVOUS SYSTEM: Cranial N 2-12 grossly normal. Moves all 4 limbs. No focal deficits. Skin: no rash Lymphatic system. No LN neck, axilla Microbiology 07/25/18 18:33 Peritoneal Fluid Gram Stain - Preliminary 07/25/18 18:33 Peritoneal Fluid Body Fluid Culture - Preliminary - Labs CBC & Chem 7: 07/26/18 08:14 07/26/18 08:14 Labs: Abnormal Lab Results - Last 24 Hours (Table) 07/26/18 07/27/18 07/27/18 Range/Units 20:48 07:11 12:41 POC Glucose (mg/dL) 198 H 160 H 246 H (75-99) mg/dL 07/27/18 Range/Units 17:30 POC Glucose (mg/dL) 123 H (75-99) mg/dL Microbiology - Last 24 Hours (Table) 07/25/18 18:33 Gram Stain - Preliminary Peritoneal Fluid Body Fluid Culture - Preliminary Assessment and Plan Assessment: -Peritonitis,, catheter associated with cultures that were apparently positive for staph.epi at [facility]. Patient did receive intraperitoneal vancomycin and gentamicin at [facility]. -Right leg wound, with blister, without cellulitis -Diabetes mellitus type 2 -End-stage kidney disease on peritoneal dialysis -Essential hypertension -Hyperlipidemia -Primary osteoarthritis Plan continue on current medication regime ,Lasix,midodrin,monitoring and symptomatic treatment. Maintain vancomycin as per pharmacy dosing via Peritoneal dialysis catheter. [facility] final culture results pending. Discharge planning in progress for tomorrow. Patient updated on plan of care. Verbalizes understanding of and agreement with. The impression and plan of care has been dictated as directed. : I performed a history and examination of this patient, discussed the same with the dictator. I agree with the dictator's note ,documented as a scribe. Any additional findings or plans will be noted.
[2018-07-27] MEDS: SERTRALINE 25 MG TAB PO SCH (20:50)
[2018-07-27 22:02] LABS: Glucose,Whole Blood 363 mg/dL (75-99)
[2018-07-28] MEDS: DIALYSIS (PERIT 2.5%) 2,000 ML 50 G/2,000 ML BAG INTRAPERIT SCH ×3 (04:14→12:24)
[2018-07-28 04:44] VITALS: PULSE 73
[2018-07-28 06:18] VITALS: TEMP 98.2
[2018-07-28 07:06] LABS: Glucose,Whole Blood 165 mg/dL (75-99)
[2018-07-28] MEDS: MIDODRINE 5 MG TAB PO SCH (07:51)
[2018-07-28] MEDS: CALCIUM ACETATE 667 MG CAP PO SCH ×2 (07:51→12:24)
[2018-07-28] MEDS: FUROSEMIDE 40 MG TAB PO SCH (07:51)
[2018-07-28] MEDS: INSULIN ASPART 100 UNIT/ML 1 ML 10 ML VIAL SQ SCH ×2 (07:51→12:27)
[2018-07-28] MEDS: FAMOTIDINE 20 MG TAB PO SCH (07:51)
[2018-07-28] MEDS: GENTAMICIN 0.1% CREAM 15 GM TUBE TOPICAL SCH (07:52)
[2018-07-28] MEDS: ASPIRIN 81 MG PO SCH (07:52)
--- NOTE | 2018-07-28 09:14 | P.PN ---
Subjective Patient is seen in follow-up for end-stage renal disease. He is maintained on peritoneal dialysis. Patient was at [facility] and was transferred here as he lives in the area. He is currently being treated for peritonitis. His initial fluid culture was positive for staph aureus. He was receiving intraperitoneal vancomycin - last dose was on July 23. Repeat cultures have been negative. He is currently on IV vancomycin. He is tolerating the peritoneal dialysis exchanges well. Lower extremity edema improving. Vital signs are stable. General: The patient appeared well nourished and normally developed. HEENT: Head exam is unremarkable. Neck is without jugular venous distension. LUNGS: Lungs are clear to auscultation and percussion. Breath sounds decreased. HEART: Rate and Rhythm are regular. First and second heart sounds normal. No murmurs, rubs or gallops. ABDOMEN: Abdominal exam reveals normal bowel sounds. Non-tender and non- distended. No evidence of peritonitis. EXTREMITITES: 1+ edema. Objective - Vital Signs Vital signs: Vital Signs Temp 98.2 F 07/28/18 06:15 Pulse 73 07/28/18 06:15 Resp 15 07/28/18 06:15 BP 91/47 07/28/18 06:15 Pulse Ox 97 07/28/18 06:15 Intake & Output 07/27/18 07/28/18 07/28/18 18:59 06:59 18:59 Intake Total 240 440 Balance 240 440 Weight 80 kg Intake: Oral 240 440 Other: Voiding Method Toilet # Voids 2 0 # Bowel Movements 0 - Labs CBC & Chem 7: 07/26/18 08:14 07/26/18 08:14 Labs: Abnormal Lab Results - Last 24 Hours (Table) 07/27/18 07/27/18 07/27/18 Range/Units 12:41 17:30 21:51 POC Glucose (mg/dL) 246 H 123 H 363 H (75-99) mg/dL 07/28/18 Range/Units 06:52 POC Glucose (mg/dL) 165 H (75-99) mg/dL Microbiology - Last 24 Hours (Table) 07/25/18 18:33 Gram Stain - Preliminary Peritoneal Fluid Body Fluid Culture - Preliminary Assessment and Plan Plan: Assessment: 1. End-stage renal disease maintained on peritoneal dialysis. 2. Peritonitis with initial fluid culture positive for staph species. Patient has received intraperitoneal vancomycin as well as gentamicin at [facility]. Currently on IV vancomycin. Repeat cultures have been negative. Cell count is 1. 3. Hypertension with chronic kidney disease. Controlled. 4. Insulin-dependent diabetes mellitus. 5. 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 6. Lower extremity edema. Improving. 7. Lower extremity wound. Infectious disease following. Plan: Maintain current PD exchanges - 2 L every 4 hours with 2.5% solution. Maintain IV vancomycin. Target level 15. Discontinued lisinopril due to low blood pressure. Maintain Lasix 80 mg daily. Continue midodrine.
[2018-07-28 09:29] VITALS: BP 97/47; RESP 16
[2018-07-28 09:49] LABS: Anisocytosis Slight; Basophils % (A) 0 %; Eosinophils # (A) 0.3 k/uL (0-0.7); Eosinophils % (A) 3 %; HCT 34.7 % (39.0-53.0); HGB 10.5 gm/dL (13.0-17.5); Hypochromasia Slight; Lymphocytes # (A) 1.2 k/uL (1.0-4.8); Lymphocytes % (A) 12 %; MCH 30.6 pg (25.0-35.0); MCHC 30.1 g/dL (31.0-37.0); MCV 101.7 fL (80.0-100.0); Macrocytosis Moderate; Monocytes # (A) 0.6 k/uL (0-1.0); Monocytes % (A) 6 %; Neutrophils # (A) 8.1 k/uL (1.3-7.7); Neutrophils % (A) 77 %; Platelet Count 333 k/uL (150-450); RBC 3.42 m/uL (4.30-5.90); RDW 17.8 % (11.5-15.5); WBC 10.6 k/uL (3.8-10.6)
[2018-07-28 09:59] LABS: Calcium 9.6 mg/dL (8.4-10.2); Potassium 3.2 mmol/L (3.5-5.1)
[2018-07-28] MEDS ORDERED: POTASSIUM CHLORIDE ER 20 MEQ TAB.ER PO STA (11:26)
[2018-07-28 12:17] LABS: Glucose,Whole Blood 259 mg/dL (75-99)
--- NOTE | 2018-07-28 16:38 | PN ---
PROGRESS NOTE DATE OF SERVICE: 07/28/2018 REASON FOR FOLLOWUP: 1. Right leg wound. 2. Peritoneal dialysis catheter-associated peritonitis, MSSA. INTERVAL HISTORY: The patient was seen on rounds earlier this afternoon. The patient has been afebrile. He was breathing comfortably. Denies having any chest pain or shortness of breath or cough. No abdominal pain or any pain to the right leg area. PHYSICAL EXAMINATION: Blood pressure is 97/47 with a pulse of 73, temperature 98.2. He is 97% on room air. General description is an elderly male up in the chair in no distress. RESPIRATORY SYSTEM: Unlabored breathing. Clear to auscultation anteriorly. HEART: S1, S2. Regular rate and rhythm. ABDOMEN: Soft. No tenderness at the peritoneal dialysis catheter site with no swelling, no redness. Right leg wound is currently dressed. No obvious drainage on the dressing. LABS: Hemoglobin is 10.5, white count 10.6, BUN of 66, creatinine 8.15. DIAGNOSTIC IMPRESSION AND PLAN: 1. Patient with peritoneal dialysis catheter-associated peritonitis. Culture was positive for MSSA. 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 It is going to be hard to control this infection without removal of that peritoneal dialysis catheter. The patient to be discharged and it was easy to administer vancomycin rather than cefazolin through the dialysis. Recommending a total of 3-week course of therapy with afterwards weekly monitoring of peritoneal fluid for cell count and cultures; and if he has any recurrence, that dialysis catheter will need to be removed. 2. Patient with right leg wound. Local wound care with [facility]. Follow up in [facility] next week. His was present at the bedside. Their questions and concerns were answered. MMODL / IJN: [id number] /
--- NOTE | 2018-07-28 18:42 | P.DS ---
Providers Date of admission: 07/24/18 19:32 Expected date of discharge: 07/28/18 Attending physician: Roberto Blue Consults: 07/24/18 20:04 Consult Physician Routine Consulting Provider: Yvonne Anand Consult Reason/Comments: CAPD/ peritonitis Do you want consulting provider notified?: Yes 07/25/18 14:06 Consult Physician Routine Consulting Provider: Davis Lucas Consult Reason/Comments: right leg wound Do you want consulting provider notified?: Yes Primary care physician: Sarthak Stanford [facility] Course: Final Diagnoses: -Peritonitis,dialysis catheter associated,MSSA -Right leg wound, with blister, without cellulitis -Diabetes mellitus type 2 -End-stage kidney disease on peritoneal dialysis -Essential hypertension -Hyperlipidemia -Primary osteoarthritis Hospital course:Interval history: This is a 78-year-old gentleman admitted with peritonitis in a patient with end-stage renal disease on peritoneal dialysis and multiple other medical issues. Peritoneal dialysis exchanges increased from every 6 hours to every 4 hours as per nephrology. Peritoneal drainage clear, colorless, with 1 nucleated cell. Peritoneal cultures pending. Peritoneal culture results from Judith Sheridan reviewed by [id number]. Maintained on IV vancomycin via peritoneal dialysis catheter as per infectious disease with pharmacy dosing. Cleared by both nephrology and infectious disease for discharge. Patient to receive of total three-week course of vancomycin via peritoneal dialysis catheter, outpatient with weekly monitoring of peritoneal fluid for cell count, cultures, with recommended removal of dialysis catheter if any reoccurrence. Patient is being discharged home in a stable condition with guarded prognosis. EXAM: GENERAL: Alert and oriented 3, no acute distress HEENT: Conjunctivae normal. Pupils equal. Oral mucosa moist. CARDIOVASCULAR: S1, S2 muffled. No murmur. RESPIRATION: Nonlabored, bilateral Breath sounds diminished in the bases. No rhonchi, crackles or wheezing ABDOMEN: Soft, nontender, nondistended . No guarding. no masses palpable. Bowel sounds heard. PD cath present, no redness NERVOUS SYSTEM: No focal deficits. Microbiology 07/25/18 18:33 Peritoneal Fluid Gram Stain - Preliminary 07/25/18 18:33 Peritoneal Fluid Body Fluid Culture - Preliminary The impression and plan of care has been dictated as directed. : I performed a history and examination of this patient, discussed the same with the dictator. I agree with the dictator's note ,documented as a scribe. Any additional findings or plans will be noted. Time taken: 35 minutes Patient Condition at Discharge: Stable Plan - Discharge Summary Discharge Rx Participant: No New Discharge Prescriptions: New Midodrine [ProAmatine] 5 mg PO AC-BID #20 tab Continue Aspirin 81 mg PO DAILY Calcium Acetate [PhosLo] 667 mg PO ACHS ALPRAZolam [Xanax] 0.25 mg PO BID PRN PRN Reason: Anxiety Calcitriol 0.5 mcg PO MO Ergocalciferol [Vitamin D2 (DRISDOL)] 50,000 unit PO Q14D Furosemide [Lasix] 80 mg PO DAILY Insulin Glargine [Lantus] 35 unit SQ HS Sertraline [Zoloft] 25 mg PO HS Sevelamer [Renvela] 800 mg PO AC-TID Francheska Charli 1 tab PO DAILY Famotidine 20 mg PO DAILY Calcium Carb-Mag Carb-Folic [Magnebind 400] 1 tab PO TID Lactulose 20 gm PO DAILY PRN PRN Reason: Constipation Discontinued Lisinopril [Zestril] 20 mg PO DAILY Discharge Medication List Aspirin 81 mg PO DAILY 06/02/16 [History] Calcium Acetate [PhosLo] 667 mg PO ACHS 06/02/16 [History] ALPRAZolam [Xanax] 0.25 mg PO BID PRN 01/04/18 [History] Calcitriol 0.5 mcg PO MO 01/04/18 [History] Ergocalciferol [Vitamin D2 (DRISDOL)] 50,000 unit PO Q14D 01/04/18 [History] Furosemide [Lasix] 80 mg PO DAILY 01/04/18 [History] Insulin Glargine [Lantus] 35 unit SQ HS 01/04/18 [History] Sertraline [Zoloft] 25 mg PO HS 01/04/18 [History] Calcium Carb-Mag Carb-Folic [Magnebind 400] 1 tab PO TID 07/21/18 [History] Famotidine 20 mg PO DAILY 07/21/18 [History] Lactulose 20 gm PO DAILY PRN 07/21/18 [History] Francheska Charli 1 tab PO DAILY 07/21/18 [History] Sevelamer [Renvela] 800 mg PO AC-TID 07/21/18 [History] Midodrine [ProAmatine] 5 mg PO AC-BID #20 tab 07/28/18 [Rx] Follow up Appointment(s)/Referral(s): Jessica Castle MD [STAFF PHYSICIAN] - 1 Week Sarthak Stanford MD [Primary Care Provider] - 07/28/18 3:00 pm Erendira Knight [NON-STAFF] - (Will deliver Medahoney to your home. ) Davis Lucas MD [STAFF PHYSICIAN] - 1 Week (Wound care center, please schedule prior to dc.) Ambulatory/Diagnostic Orders: Complete Blood Count w/diff [LAB.AMB] Time Frame: 3 Days, Location: None Selected Patient Instructions/Handouts: Peritonitis (DC) Activity/Diet/Wound Care/Special Instructions: Vancomycin as per ID X 2weeks. Medahoney to the right leg wound , than STEFANIE wrap from just above toes to below knees , change daily , follow up with Dr Lucas in the wound care next week , call [phone] to make an appointment Discharge Disposition: HOME SELF-CARE
[2018-07-29] MEDS ORDERED: ERGOCALCIFEROL 50,000 UNIT CAP PO SCH (09:00)
== END 2018-07-28 15:13 | disposition home or self-care (01) | DRG 919 ==
LOC: 4MS4W 19:32
PROVIDERS: ADMIT Hospitalist; ATTEND Hospitalist
DX: T85.71XA Infection and inflammatory reaction due to peritoneal dialysis catheter, initial encounter (principal); K65.8 Other peritonitis; N18.6 End stage renal disease; I12.0 Hypertensive chronic kidney disease with stage 5 chronic kidney disease or end stage renal disease; L03.311 Cellulitis of abdominal wall; B95.61 Methicillin susceptible Staphylococcus aureus infection as the cause of diseases classified elsewhere; F41.9 Anxiety disorder, unspecified; E11.22 Type 2 diabetes mellitus with diabetic chronic kidney disease; E78.5 Hyperlipidemia, unspecified; F17.210 Nicotine dependence, cigarettes, uncomplicated; H91.90 Unspecified hearing loss, unspecified ear; M19.90 Unspecified osteoarthritis, unspecified site; Z91.81 History of falling; Y83.8 Other surgical procedures as the cause of abnormal reaction of the patient, or of later complication, without mention of misadventure at the time of the procedure; Z79.4 Long term (current) use of insulin; Z79.82 Long term (current) use of aspirin; Z79.899 Other long term (current) drug therapy; Z85.46 Personal history of malignant neoplasm of prostate; Z99.2 Dependence on renal dialysis; S80.821A Blister (nonthermal), right lower leg, initial encounter; M10.9 Gout, unspecified; S00.83XA Contusion of other part of head, initial encounter
CPT/HCPCS: 36415; 70450; 70486; 71046; 72125; 80048; 80053; 80202; 82140; 82150; 82550; 82553; 83036; 83605; 83690; 83735; 84484; 85025; 87070; 87205; 89050; 93005; 96374; 96375; 96376; 99285